=== PATIENT | male | born 1950 | race Caucasian/White ===

== ENCOUNTER 2020-06-22 14:52 | Emergency (ER) | payer MEDICARE, BC ==
[2020-06-22 15:07] VITALS: BP 122/100
--- NOTE | 2020-06-22 15:25 | EDM.PDOC ---
ED HPI GENERAL MEDICAL PROBLEM - General Chief Complaint: Cardiovascular Problem Stated Complaint: RAPID HEART RATE SENT BY CLINIC Time Seen by Provider: 06/22/20 15:24 Source of Information: Reports: Patient History Limitations: Reports: No Limitations - History of Present Illness INITIAL COMMENTS - FREE TEXT/NARRATIVE: 70-year-old male sent across from [facility] after seeing his primary care physician Dr. Clark. Patient went to see his primary care physician today due to low back injury/strain. Nurses identified at the time of his exam that his heart was beating way too fast in the 140 and 150 range. Apparently the patient has had intermittent problems with a tachyarrhythmia off and on for a couple of years but it almost always gets better on its own. He is on Cardizem 120 mg extended release tablet daily. ECG done at the clinic which was sent over suggests SVT at approximately 148 bpm. It is difficult for me to ascertain that this is a junctional tachycardia as the P waves are not well-defined. During my interview with the patient his heart rate went from 142 back to sinus and when I sat him up to examine his posterior chest. He went down to sinus rhythm at 105/min. He was symptomatic only from being lightheaded and dizzy. Perhaps slightly short of breath but no central chest pain or discomfort. Perhaps some weakness in his lower extremities. He is not always aware of any of the palpitations or racing heart. He does not use alcohol or he states he drinks maybe 12 beers in a year. Of time. He is a non-smoker and does not use any energy drinks. He has not taken any stimulants and medications. Does have a history of hypertension Onset: Unknown/Unsure (Is unclear how long he may have been in this rhythm.) Duration: Intermittent, Waxing/Waning Location: Reports: Chest (Racing heart) Quality: Reports: Other (Slightly lightheaded and dizzy when his heart is racing. Slightly short of breath but no chest pain) Severity: Mild Improves with: Reports: None Worsens with: Reports: None Context: Denies: Activity, Exercise, Lifting, Sick Contact, Trauma, Other (Patient has never tried Valsalva maneuvers.) Associated Symptoms: Reports: Shortness of Breath, Weakness (Weakness in his extremities), Other (Dizziness and lightheadedness associated with racing heart). Denies: Confusion, Chest Pain, Cough, cough w sputum, Diaphoresis, Fever/Chills, Headaches, Loss of Appetite, Malaise, Nausea/Vomiting, Rash, Seizure, Syncope (Mild dyspnea.) Treatments FACE BOSS: Reports: Other (see below) (None.) Back Pain Score (Numeric/FACES): 4 - Related Data Allergies Allergy/AdvReac Type Severity Reaction Status Date / Time No Known Allergies Allergy Verified 12/27/16 14:01 Home Meds: Home Meds Acyclovir [Zovirax 5% Oint] 1 inch TOP DAY 06/22/20 [History] Aspirin [Aspirin EC] 1 tab PO DAILY 06/22/20 [History] Cyclobenzaprine [Flexeril] 1 tab PO TID PRN 06/22/20 [History] Hydrocodone/Acetaminophen [Hydrocodone-Acetamin 5-325 mg] 1 each PO Q6HR PRN 06/22/20 [History] Hydrocortisone Acetate [Anusol-Hc] 1 supp RECTAL BID 06/22/20 [History] Magnesium Chloride [Slow-Mag] 71.5 mg PO BID #20 tablet.dr 06/22/20 [Rx] Omeprazole 1 cap PO DAILY 06/22/20 [History] Sertraline [Zoloft] 1 tab PO DAILY 06/22/20 [History] Valsartan/Hydrochlorothiazide [Diovan Hct 320-25 mg Tablet] 1 tab PO DAILY 06/22/20 [History] amLODIPine [Norvasc] 1 tab PO DAILY 06/22/20 [History] atorvaSTATin [Lipitor] 1 tab PO DAILY 06/22/20 [History] dilTIAZem HCL [Diltiazem 24Hr ER (Xr)] 1 cap PO BEDTIME 06/22/20 [History] metFORMIN HCl [Metformin HCl] 1 tab PO BID 06/22/20 [History] valACYclovir [Valtrex] 1 tab PO Q12HR 06/22/20 [History] Past Medical History - Past Health History Medical/Surgical History: Denies Medical/Surgical History Cardiovascular History: Reports: Arrhythmia (Current problems with tachyarrhythmia not firmly diagnosed but believed to be due to SVT or junctional tachycardia.), High Cholesterol, Hypertension Gastrointestinal History: Reports: GERD Musculoskeletal History: Reports: Back Pain, Chronic Endocrine/Metabolic History: Reports: Diabetes, Type II Social & Family History - Family History Family Medical History: Noncontributory - Tobacco Use Smoking Status *Q: Never Smoker Second Hand Smoke Exposure: No - Caffeine Use Caffeine Use: Reports: None - Living Situation & Occupation Living situation: Reports: Occupation: Retired ED ROS GENERAL - Review of Systems Review Of Systems: See Below Constitutional: Reports: Weakness, Fatigue, Decreased Appetite. Denies: Fever, Chills, Malaise, Night Sweats, Diaphoresis, Weight Loss, Weight Gain HEENT: Reports: Glasses Respiratory: Reports: Shortness of Breath. Denies: Wheezing, Pleuritic Chest Pain, Cough, Sputum, Hemoptysis Cardiovascular: Reports: Blood Pressure Problem, Dyspnea on Exertion, Lightheadedness (With a racing heart.), Palpitations (With a racing heart.). Denies: Chest Pain, Claudication, Edema, Orthopnea (On medication for hypertension) Endocrine: Reports: No Symptoms ( Vaguely aware of palpitations or racing heart at times) GI/Abdominal: Reports: Hematochezia, Other (Is with external hemorrhoids which bleed intermittently.) : Reports: Frequency, Other (Nocturia x2. Known BPH) Musculoskeletal: Reports: Back Pain, Joint Pain (He sips neck at times) Skin: Reports: No Symptoms Neurological: Reports: No Symptoms Psychiatric: Reports: No Symptoms Hematologic/Lymphatic: Reports: No Symptoms Immunologic: Reports: No Symptoms ED EXAM, GENERAL - Physical Exam Exam: See Below Exam Limited By: No Limitations General Appearance: Alert, WD/WN, No Apparent Distress, Other (Was after he converted back to sinus rhythm spontaneously) Eye Exam: Bilateral Eye: Normal Inspection, Periorbital Changes Throat/Mouth: Normal Inspection, Normal Lips, Normal Oropharynx Head: Atraumatic, Normocephalic Neck: Normal Inspection, Supple, Non-Tender, Full Range of Motion. No: Carotid Bruit, Lymphadenopathy (L), Lymphadenopathy (R), Thyromegaly Respiratory/Chest: No Respiratory Distress, No Accessory Muscle Use Cardiovascular: Normal Peripheral Pulses, No Edema, No Gallop, No Murmur, No Rub, Other (Initial heart rate was that of regular tachycardia at 144/min suggestive of an SVT. It appeared on some of the beats that there may be a P wave predating the QRS complex but this was nonconclusive due to [id number] ECG.) Peripheral Pulses: 2+: Posterior Tibial (L), Posterior Tibial (R), Dorsalis Pedis (L), Dorsalis Pedis (R), 3+: Carotid (L), Carotid (R) GI/Abdominal: Normal Bowel Sounds, Soft, Non-Tender, No Organomegaly, No Abnormal Bruit, No Mass, Other (Small umbilical hernia easily reducible and does not bother the patient.) (Male) Exam: No Hernia ( Mildly obese.) Back Exam: Normal Inspection, Full Range of Motion, Decreased Range of Motion, Muscle Spasm (Back stiffness and soreness with sitting up.), Paraspinal Tende rness (Bilateral paraspinal muscle tenderness along the lumbar spine.). No: CVA Tenderness (L), CVA Tenderness (R) Extremities: Normal Inspection, Normal Range of Motion, Non-Tender, No Pedal Edema Neurological: Alert, Oriented, CN II-XII Intact, Normal Cognition Psychiatric: Normal Affect, Normal Mood Skin Exam: Warm, Dry, Intact, Normal Color, No Rash EKG INTERPRETATION EKG Date: 06/22/20 Time: 15:26 Rhythm: Other Rate (Beats/Min): 100 Placedo: LAD-Left Placedo Deviation (Mild left axis deviation of -9 degrees.) P-Wave: Enlarged (Left atrial hypertrophy pattern) QRS: Other (Early R wave transition consider right ventricular hypertrophy versus septal hypertrophy pattern there are Q waves in leads III and aVF. Consider old inferior wall myocardial infarction.) ST-T: Other QT: Normal EKG Interpretation Comments: Abnormal ECG Course - Vital Signs Last Recorded V/S: Last Vital Signs Temp 36.2 C 06/22/20 15:04 Pulse 90 06/22/20 16:55 Resp 17 06/22/20 15:04 BP 122/100 H 06/22/20 15:04 Pulse Ox 97 06/22/20 15:04 - Orders/Labs/Meds Orders: Active Orders 24 hr Category Date Time Status EKG Documentation Completion [RC] STAT Care 06/22/20 15:30 Active Labs: Laboratory Tests 06/22/20 06/22/20 06/22/20 Range/Units 15:11 15:11 15:11 WBC 11.03 H (4.23-9.07) K/mm3 RBC 4.87 (4.63-6.08) M/mm3 Hgb 13.9 (13.7-17.5) gm/dl Hct 40.7 (40.1-51.0) % MCV 83.6 (79.0-92.2) fl MCH 28.5 (25.7-32.2) pg MCHC 34.2 (32.2-35.5) g/dl RDW Std Deviation 39.5 (35.1-43.9) fL Plt Count 308 (163-337) K/mm3 MPV 10.1 (9.4-12.3) fl Neut % (Auto) 66.3 (34.0-67.9) % Lymph % (Auto) 19.3 L (21.8-53.1) % Bleckley % (Auto) 10.2 (5.3-12.2) % Eos % (Auto) 3.2 (0.8-7.0) Baso % (Auto) 0.5 (0.1-1.2) % Neut # (Auto) 7.33 H (1.78-5.38) K/mm3 Lymph # (Auto) 2.13 (1.32-3.57) K/mm3 Bleckley # (Auto) 1.12 H (0.30-0.82) K/mm3 Eos # (Auto) 0.35 (0.04-0.54) K/mm3 Baso # (Auto) 0.05 (0.01-0.08) K/mm3 Manual Slide Review Normal smear PT 10.6 (9.7-12.0) SECONDS INR 0.99 APTT 26 (22-31) SECONDS Sodium 137 (136-145) mEq/L Potassium 3.6 (3.5-5.1) mEq/L Chloride 102 (98-107) mEq/L Carbon Dioxide 24 (21-32) mEq/L Anion Gap 14.6 (5-15) BUN 30 H (7-18) mg/dL Creatinine 1.8 H (0.7-1.3) mg/dL Est Cr Clr Drug Dosing 40.09 mL/min Estimated GFR (MDRD) 37 (>60) mL/min BUN/Creatinine Ratio 16.7 (14-18) Glucose 178 H (83-115) mg/dL Calcium 9.5 (8.5-10.1) mg/dL Magnesium 1.3 L (1.8-2.4) mg/dl Total Bilirubin 0.9 (0.2-1.0) mg/dL AST 16 (15-37) U/L ALT 31 (16-63) U/L Alkaline Phosphatase 59 (46-116) U/L CK-MB (CK-2) 3.1 (0-3.6) ng/ml Troponin I < 0.017 (0.00-0.056) ng/mL C-Reactive Protein 1.8 H* (<1.0) mg/dL NT-Pro-B Natriuret Pep (0-125) pg/mL Total Protein 7.9 (6.4-8.2) g/dl Albumin 3.8 (3.4-5.0) g/dl Globulin 4.1 gm/dL Albumin/Globulin Ratio 0.9 L (1-2) TSH 3rd Generation (0.358-3.74) uIU/mL 06/22/20 06/22/20 Range/Units 15:11 15:11 WBC (4.23-9.07) K/mm3 RBC (4.63-6.08) M/mm3 Hgb (13.7-17.5) gm/dl Hct (40.1-51.0) % MCV (79.0-92.2) fl MCH (25.7-32.2) pg MCHC (32.2-35.5) g/dl RDW Std Deviation (35.1-43.9) fL Plt Count (163-337) K/mm3 MPV (9.4-12.3) fl Neut % (Auto) (34.0-67.9) % Lymph % (Auto) (21.8-53.1) % Bleckley % (Auto) (5.3-12.2) % Eos % (Auto) (0.8-7.0) Baso % (Auto) (0.1-1.2) % Neut # (Auto) (1.78-5.38) K/mm3 Lymph # (Auto) (1.32-3.57) K/mm3 Bleckley # (Auto) (0.30-0.82) K/mm3 Eos # (Auto) (0.04-0.54) K/mm3 Baso # (Auto) (0.01-0.08) K/mm3 Manual Slide Review PT (9.7-12.0) SECONDS INR APTT (22-31) SECONDS Sodium (136-145) mEq/L Potassium (3.5-5.1) mEq/L Chloride (98-107) mEq/L Carbon Dioxide (21-32) mEq/L Anion Gap (5-15) BUN (7-18) mg/dL Creatinine (0.7-1.3) mg/dL Est Cr Clr Drug Dosing mL/min Estimated GFR (MDRD) (>60) mL/min BUN/Creatinine Ratio (14-18) Glucose (83-115) mg/dL Calcium (8.5-10.1) mg/dL Magnesium (1.8-2.4) mg/dl Total Bilirubin (0.2-1.0) mg/dL AST (15-37) U/L ALT (16-63) U/L Alkaline Phosphatase (46-116) U/L CK-MB (CK-2) (0-3.6) ng/ml Troponin I (0.00-0.056) ng/mL C-Reactive Protein (<1.0) mg/dL NT-Pro-B Natriuret Pep 149 H (0-125) pg/mL Total Protein (6.4-8.2) g/dl Albumin (3.4-5.0) g/dl Globulin gm/dL Albumin/Globulin Ratio (1-2) TSH 3rd Generation 1.663 (0.358-3.74) uIU/mL - Radiology Interpretation Free Text/Narrative:: 70-year-old male presents to the ED at the request of his primary care physician due to discovery of a rapid pulse when he checked into the clinic today. ECG done there shows a regular tachycardia narrow complex suggestive of SVT at 148/min. When he presented to the ED he was pressure 144/min with a regular narrow complex tachycardia. I cannot see any P waves just tell that it was a junctional rhythm. Once I set the patient up to examined his back and lungs he converted back to sinus rhythm at 105/min and subsequently heart rate is at currently in the 90s. Blood pressure was 108/78. Sats are 96% on room air. Plan chest x-ray, ECG, routine labs including a TSH to be done. - Re-Assessments/Exams Free Text/Narrative Re-Assessment/Exam: 06/22/20 16:10: Chest x-ray done portably reveals heart size to be within normal limits. Tortuous thoracic aorta is appreciated. Lungs are clear with no acute parenchymal changes. 06/22/20 16:25 Count is 11.03 slightly elevated. Differential shows 66% neutrophils on the auto differential. Hemoglobin is 13.9 with hematocrit of 40.7. Platelet count is 308,000. PT is 10.6 with an INR of 0.99. PTT is 26. Sodium 137 with a potassium of 3.6. Chloride is 102 with a bicarb of 24. Anion gap is 14.6. BUN is slightly elevated at 30 and creatinine is 1.8. Estimated GFR is 37 suggesting stage III chronic renal insufficiency. Glucose is elevated at 178. Calcium is 9.5 magnesium is low at 1.3. Total bilirubin is 0.9 remainder the liver function studies are normal. Troponin I is less than 0.017. C-reactive protein is 1.8. BNP is slightly elevated at 149. Total protein 7.9 with an albumin fraction of 3.8. I have discussed the findings with the patient and decision made to place him on Slow-Mag 1 tablet twice daily for the next 2 weeks until follow-up with Dr. Melinda Storm. I would like him to see a mechanical intern due to changes noted on his ECG suggesting right ventricular hypertrophy versus septal hypertrophy pattern. I believe an echocardiogram is in order. Strain of the left atrium may be the cause of his recurrent arrhythmia. I did not increase his Cardizem since his blood pressure is only 106/76 at this time. Departure - Departure Time of Disposition: 16:38 Disposition: Home, Self-Care 01 Reason for Transfer *Q: Other Condition: Fair Clinical Impression: Supraventricular tachycardia determined by electrocardiogram, Hypomagnesemia Prescriptions: Magnesium Chloride [Slow-Mag] 71.5 mg PO BID #20 tablet. Instructions: Supraventricular Tachycardia, Adult Referrals: Mateusz Angeles MD [Primary Care Provider] - Forms: ED Department Discharge Additional Instructions: Evaluation in the emergency room today due to rapid narrow complex heart rate identified at the clinic where your heart was beating 148 bpm. When you arrived in the ED your heart rate was 144 bpm. This is called supraventricular tachycardia and can occur for no good reason. ECG suggest that your septum of your heart and the left side of your heart may be slightly enlarged and I would advise you to seek out cardiology consultation and an echocardiogram to determine structural changes in the heart. You converted back to regular sinus rhythm when I sat you up to examine your back while in the ED. He remained in sinus rhythm for the next hour in the 90s. Blood pressure remained fairly normal as well at 112/80. The only abnormality on lab testing revealed low serum magnesium level at 1.3 and it should be around 2.0. Suggest using Slow- Mag tablets 1 tablet twice daily for the next 10 days and then follow-up with Dr. Melinda Storm to have your magnesium level checked again. Collar Separator may have some suggestions about medication changes that may help prevent recurrent bouts of supraventricular tachycardia. At this time there are no restrictions in activity. No alcohol, caffeine, or nicotine should be utilized as these are all cardiac stimulants. No energy drinks as we had discussed. Return to the ED if similar type event occurs. Sepsis Event Note (ED) - Evaluation Sepsis Screening Result: No Definite Risk - Focused Exam Vital Signs: Vital Signs Temp Pulse Resp BP Pulse Ox 06/22/20 16:55 90 06/22/20 15:50 95 06/22/20 15:39 104 H 06/22/20 15:04 36.2 C 144 H 17 122/100 H 97 - My Orders Last 24 Hours: My Active Orders 06/22/20 15:30 EKG Documentation Completion [RC] STAT - Assessment/Plan Last 24 Hours: My Active Orders 06/22/20 15:30 EKG Documentation Completion [RC] STAT
--- NOTE | 2020-06-22 16:13 | CR ---
Chest: Portable view of the chest was obtained. Comparison: Prior chest x-ray of 06/29/16. Heart size is within normal limits for portable technique. Tortuous thoracic aorta is seen. Lungs are clear with no acute parenchymal change. Bony structures are grossly intact. Impression: 1. Nothing acute is seen on portable chest x-ray. Diagnostic code #2 Study was dictated in MDT
[2020-06-22 16:58] VITALS: PULSE 90
== END 2020-06-22 16:55 | disposition home or self-care (01) ==
LOC: JD.ED 14:52
DX: I47.1 Supraventricular tachycardia (principal); E83.42 Hypomagnesemia; K21.9 Gastro-esophageal reflux disease without esophagitis; E78.00 Pure hypercholesterolemia, unspecified; I10 Essential (primary) hypertension; E11.9 Type 2 diabetes mellitus without complications; Z79.82 Long term (current) use of aspirin; Z79.84 Long term (current) use of oral hypoglycemic drugs; Z79.899 Other long term (current) drug therapy
CPT/HCPCS: 36415; 71045; 71045-26; 80053; 82553; 83735; 83880; 84443; 84484; 85025; 85610; 85730; 86140; 93005; 93010; 99284; 99285-25

== ENCOUNTER 2024-05-30 08:46 | Inpatient (IN) | payer MEDICARE, BC ==
[2024-05-30] MEDS ORDERED: Sodium Chloride 0.9% 10 ML Syringe FLUSH PRN ×2 (08:53→08:56)
[2024-05-30] MEDS: Iopamidol 755 Mg/ML 100 ML Bottle IVPUSH ONE (08:57)
[2024-05-30] MEDS: Sodium Chloride 0.9% 10 ML Syringe FLUSH PRN (08:57)
[2024-05-30] MEDS: Sodium Chloride 0.9% 45 ML IV SCH (09:00)
[2024-05-30 10:03] LABS: BASOPHILS ABSOLUTE AUTO 0.1 K/mm3 (0.0-0.2); BASOPHILS PERCENT AUTO 0.8 % (0.0-1.0); EOSINOPHILS ABSOLUTE AUTO 0.1 K/mm3 (0.0-0.4); EOSINOPHILS PERCENT AUTO 1.5 % (0.0-6.0); HEMATOCRIT 43.5 % (42.0-52.0); HEMOGLOBIN 14.7 gm/dl (14.0-18.0); IMMATURE GRAN ABSOLUTE AUTO 0.03 K/mm3 (0.00-0.05); IMMATURE GRAN PERCENT AUTO 0.4 % (0.0-0.4); LYMPHOCYTES ABSOLUTE AUTO 1.8 K/mm3 (1.0-4.8); LYMPHOCYTES PERCENT AUTO 23.1 % (24.0-44.0); MEAN CORPUSCULAR HEMOGLOBIN 27.7 pg (28.0-32.0); MEAN CORPUSCULAR HGB CONC 33.8 g/dl (32.0-36.0); MEAN CORPUSCULAR VOLUME 82.1 fl (83.0-99.0); MEAN PLATELET VOLUME 9.8 fl (9.4-12.4); MONOCYTES ABSOLUTE AUTO 0.6 K/mm3 (0.0-0.8); MONOCYTES PERCENT AUTO 7.3 % (0.0-8.0); NEUTROPHILS ABSOLUTE AUTO 5.2 K/mm3 (1.8-7.7); NEUTROPHILS PERCENT AUTO 66.9 % (41.0-71.0); PLATELET COUNT,PLT 252 K/mm3 (150-400); WHITE BLOOD CELL COUNT,WBC 7.82 K/mm3 (3.9-11.3)
[2024-05-30 10:29] LABS: APPEARANCE,URINE CLEAR (Clear); BILIRUBIN,URINE NEGATIVE (Negative); COLOR,URINE YELLOW (Yellow); GLUCOSE,URINE TRACE (Negative); KETONES,URINE NEGATIVE (Negative); LEUKOCYTE ESTERASE,URINE NEGATIVE (Negative); NITRITE,URINE NEGATIVE (Negative); OCCULT BLOOD,URINE NEGATIVE (Negative); PH,URINE 5.5 (5.0-8.0); PROTEIN,URINE 2+ (Negative); UROBILINOGEN,URINE 0.2 (0.2-1.0)
[2024-05-30 10:33] LABS: INR 1.03; PROTHROMBIN TIME 10.9 SECONDS (9.7-12.0)
[2024-05-30 10:35] LABS: A/G RATIO 0.9 (1-2); ALBUMIN 3.6 g/dl (3.4-5.0); ANION GAP 17.8 (5-15); BILIRUBIN TOTAL 1.3 mg/dL (0.2-1.0); BUN/CREATININE RATIO 14.2 (14-18); CALCIUM 9.3 mg/dL (8.5-10.1); CREATININE 1.2 mg/dL (0.7-1.3); EST CRCL DRUG DOSING (CG) 56.65 mL/min; MAGNESIUM 1.5 mg/dL (1.8-2.4); POTASSIUM,K 3.8 mEq/L (3.5-5.1); PROTEIN TOTAL,TP 7.5 g/dl (6.4-8.2)
[2024-05-30 10:41] LABS: BACTERIA,URINE RARE /hpf (FEW); CALCIUM OXALATE CRYSTALS,URINE FEW; EPITHELIAL CELLS,URINE 0-5 /hpf (0-5); MUCUS,URINE RARE /hpf (FEW); RBC,URINE 0-5 /hpf (0-5); WBC,URINE 0-5 /hpf (0-5)
[2024-05-30] MEDS: Sodium Chloride 0.9% 1,000 ML IV ONE (10:56)
[2024-05-30] MEDS ORDERED: Acetaminophen 325 MG Tab PO PRN (12:31)
[2024-05-30] MEDS ORDERED: Ondansetron 4 MG/2 ML SDV IV PRN (12:31)
[2024-05-30] MEDS: Clopidogrel 75 MG Tab PO ONE (12:36)
[2024-05-30] MEDS: Aspirin 81 MG Tab.Chew PO ONE (12:36)
[2024-05-30] MEDS: atorvaSTATin 40 MG Tab PO ONE (12:37)
[2024-05-30] MEDS: hydrALAZINE 20 MG/ML SDV IVPUSH PRN (16:58)
[2024-05-30] MEDS: Insulin Lispro 100 Unit/ML 3 ML KwikPen SUBCUT SCH (16:59)
[2024-05-30] MEDS: Diltiazem 120 MG Cap.CD PO SCH (20:05)
[2024-05-30] MEDS: Acetaminophen 325 MG Tab PO PRN (20:05)
[2024-05-31] MEDS: atorvaSTATin 40 MG Tab PO SCH (08:07)
[2024-05-31] MEDS: Aspirin 81 MG Tab.EC PO SCH (08:07)
[2024-05-31] MEDS: amLODIPine 5 MG Tab PO SCH (08:07)
[2024-05-31] MEDS: Enoxaparin 40 MG/0.4 ML Syringe SUBCUT SCH (08:07)
[2024-05-31] MEDS: Sertraline 50 MG Tab PO SCH (08:07)
[2024-05-31] MEDS: Pantoprazole 40 MG Tab.CR PO SCH (08:07)
[2024-05-31] MEDS: Clopidogrel 75 MG Tab PO SCH (08:07)
[2024-05-31 10:43] LABS: POTASSIUM,K 3.5 mEq/L (3.5-5.1)
[2024-05-31 10:44] LABS: A/G RATIO 0.9 (1-2); ALBUMIN 3.2 g/dl (3.4-5.0); ANION GAP 14.5 (5-15); BILIRUBIN TOTAL 1.4 mg/dL (0.2-1.0); CALCIUM 9.1 mg/dL (8.5-10.1); EST CRCL DRUG DOSING (CG) 70.06 mL/min; PROTEIN TOTAL,TP 6.9 g/dl (6.4-8.2)
[2024-05-31 10:45] LABS: HEMOGLOBIN A1C 8.9 %
[2024-05-31 10:57] LABS: HEMATOCRIT 40.9 % (42.0-52.0); HEMOGLOBIN 14.1 gm/dl (14.0-18.0); MEAN CORPUSCULAR HEMOGLOBIN 27.8 pg (28.0-32.0); MEAN CORPUSCULAR HGB CONC 34.5 g/dl (32.0-36.0); MEAN CORPUSCULAR VOLUME 80.5 fl (83.0-99.0); MEAN PLATELET VOLUME 10.6 fl (9.4-12.4); PLATELET COUNT,PLT 224 K/mm3 (150-400); RED BLOOD CELL COUNT 5.08 M/mm3 (4.52-5.90)
[2024-06-01 06:19] LABS: HEMATOCRIT 41.6 % (42.0-52.0); HEMOGLOBIN 14.3 gm/dl (14.0-18.0); MEAN CORPUSCULAR HEMOGLOBIN 27.7 pg (28.0-32.0); MEAN CORPUSCULAR HGB CONC 34.4 g/dl (32.0-36.0); MEAN CORPUSCULAR VOLUME 80.5 fl (83.0-99.0); MEAN PLATELET VOLUME 9.9 fl (9.4-12.4); PLATELET COUNT,PLT 217 K/mm3 (150-400); RED BLOOD CELL COUNT 5.17 M/mm3 (4.52-5.90); WHITE BLOOD CELL COUNT,WBC 8.29 K/mm3 (3.9-11.3)
[2024-06-01 06:45] LABS: A/G RATIO 0.9 (1-2); ALBUMIN 3.3 g/dl (3.4-5.0); ANION GAP 14.8 (5-15); BILIRUBIN TOTAL 1.3 mg/dL (0.2-1.0); BUN/CREATININE RATIO 17.5 (14-18); CALCIUM 9.1 mg/dL (8.5-10.1); CREATININE 1.2 mg/dL (0.7-1.3); EST CRCL DRUG DOSING (CG) 58.38 mL/min; POTASSIUM,K 3.8 mEq/L (3.5-5.1); PROTEIN TOTAL,TP 6.9 g/dl (6.4-8.2)
[2024-06-01] MEDS: Potassium Chloride 20 MEQ Tab.ER PO ONE (12:41)
[2024-06-01] MEDS: Magnesium Sulfate/Water 2 GM in Premix Bag 1 BAG IV ONE (12:41)
[2024-06-01] MEDS: Losartan 50 MG Tab PO SCH (13:04)
[2024-06-01 14:00] VITALS: BP 169/101
[2024-06-01 14:01] VITALS: PULSE 64
== END 2024-06-01 14:36 | disposition home or self-care (01) | DRG 66 ==
LOC: JD.ED 08:46 → JD.MS 11:45
PROVIDERS: ADMIT Internal Medicine; ATTEND Internal Medicine
DX: I63.532 Cerebral infarction due to unspecified occlusion or stenosis of left posterior cerebral artery (principal); R42 Dizziness and giddiness; R26.2 Difficulty in walking, not elsewhere classified; E78.5 Hyperlipidemia, unspecified; R47.81 Slurred speech; G89.29 Other chronic pain; M54.9 Dorsalgia, unspecified; E11.59 Type 2 diabetes mellitus with other circulatory complications; R29.810 Facial weakness; I10 Essential (primary) hypertension; E78.00 Pure hypercholesterolemia, unspecified; K21.9 Gastro-esophageal reflux disease without esophagitis; Z79.01 Long term (current) use of anticoagulants; Z79.82 Long term (current) use of aspirin; E11.9 Type 2 diabetes mellitus without complications; Z79.899 Other long term (current) drug therapy; Z79.84 Long term (current) use of oral hypoglycemic drugs
CPT/HCPCS: 36415; 70450; 70496; 70498; 80053; 81001; 83735; 84484; 85025; 85610; 85730; 93005; 96360; 99285; J3490 ×2; J7030; Q9967; 70551; 70551-26; 80061; 82947; 83036; 85027; 93306; 94760; 94761; 97161-GP; 99238; A9270-GY; J0360; J1650; J1815; J3475